=== PATIENT | male | born 1945 | race Caucasian/White ===

== ENCOUNTER 2017-07-24 14:01 | Inpatient (IN) | payer OTHER ==
[~2017-07-24] VITALS: Ht 175.3 cm; Wt 109.3 kg
[2017-07-24 14:05] VITALS: BP 116/69
--- NOTE | 2017-07-24 14:05 | NUR ---
PATIENT AA&O UPON ARRIVAL TO ER. SPEECH CLEAR,NO FACIAL DROOP,ALL EXTREMITIES NO WEAKNESS. HANDS STRONG FLOORING SALES MANAGER. CONVERSING. PER PATIENT,THIS SYMPTOMS HAPPENED MULTIPLE TIMES
--- NOTE | 2017-07-24 14:30 | NUR ---
PATIENT TAKEN TO CT.SCAN
--- NOTE | 2017-07-24 14:46 | NUR ---
PATIENT REFUSED CTSCAN HEAD. ERMD MADE AWARE
[2017-07-24 14:52] LABS: BASOPHILS # (AUTO) 0.2 K/uL (0.00-0.22); BASOPHILS % (AUTO) 2.3 % (0.0-2.0); EOSINOPHILS # (AUTO) 0.4 K/uL (0-0.4); EOSINOPHILS % (AUTO) 5.1 % (0.0-4.0); HEMOGLOBIN 10.6 g/dL (12.0-18.0); LYMPHOCYTES # (AUTO) 1.4 K/uL (2.0-11.5); LYMPHOCYTES % (AUTO) 16.4 % (20.5-51.1); MEAN CORPUSCULAR HEMOGLOBIN 29 pg (27-31); MEAN CORPUSCULAR HGB CONC 33 g/dL (33-37); MEAN CORPUSCULAR VOLUME 89 fL (80-94); MONOCYTES # (AUTO) 0.9 K/uL (0.8-1.0); MONOCYTES % (AUTO) 10.3 % (1.7-9.3); NEUTROPHILS # (AUTO) 5.7 K/uL (1.8-7.7); NEUTROPHILS % (AUTO) 65.9 % (42.2-75.2); PLATELET COUNT (AUTO) 298 K/uL (140-450); RED BLOOD CELL COUNT(AUTO) 3.61 MIL/uL (4.20-6.10); RED CELL DISTRIBUTION WIDTH 13.4 % (11.6-13.7); WHITE BLOOD COUNT (AUTO) 8.6 K/uL (4.8-10.8)
--- NOTE | 2017-07-24 14:55 | NUR ---
PATIENT TO BED #2
[2017-07-24 15:12] LABS: PROTHROMBIN TIME 11.8 secs (10.8-13.4)
[2017-07-24 15:33] LABS: ALBUMIN 2.7 g/dL (3.4-5.0); ANION GAP 12.6 (8-16); CARBON DIOXIDE 26.3 mmol/L (21-32); CREATININE 2.3 mg/dL (0.7-1.3); POTASSIUM 4.9 mmol/L (3.5-5.1); TOTAL BILIRUBIN 0.4 mg/dL (0.0-1.0)
--- NOTE | 2017-07-24 15:34 | NUR ---
71/M BIBA C/O SLURRED SPEECH x TODAY. PER ENTEROSTOMAL THERAPY NURSE /, PATIENT HAD SLURRED SPEECH/RT.SIDED WEAKNESS APPROX AT 1327. SYMPTOMS RESOLVED WHEN ENTEROSTOMAL THERAPY NURSE ARRIVED AT 1335. BS FIELD 247. HX:HTN,CABG,DM,LIVER PROB,KIDNEY DESEASE. DONT REMEMBER MEDS. ERMD ASSESSING PATIENT ON [facility]
--- NOTE | 2017-07-24 16:00 | NUR ---
Patient being evaluated by physician at bedside.
[2017-07-24] MEDS ORDERED: HYDROcodone/APAP 10/325 MG 1 TAB TAB PO ONE (16:25)
--- NOTE | 2017-07-24 16:35 | NUR ---
PT RESTING. VSS; PATIENT POSITIONED FOR COMFORT; HOB ELEVATED; BEDRAILS UP X2; BED DOWN. ER MD MADE AWARE OF PT STATUS.
[2017-07-24 16:40] LABS: APPEARANCE,URINE CLEAR (CLEAR); BILIRUBIN,URINE NEGATIVE (NEGATIVE); BLOOD, URINE NEGATIVE (NEGATIVE); COLOR,URINE YELLOW (YELLOW); LEUKOCYTE ESTERASE ,URINE NEGATIVE (NEGATIVE); NITRITE, URINE NEGATIVE (NEGATIVE); PH,URINE 5.5 (5.0-9.0); UGLUCOSE 2+ (NEGATIVE)
[2017-07-24] MEDS ORDERED: CLOPIDOGREL 75 MG TAB PO ONE (16:50)
[2017-07-24] MEDS ORDERED: INSU100S5 IJ (17:25)
[2017-07-24] MEDS ORDERED: INSU100S10 SC (17:26)
[2017-07-24] MEDS ORDERED: INSU10SU2 SC (17:29)
--- NOTE | 2017-07-24 17:43 | NUR ---
PT RESTING. VSS; PATIENT POSITIONED FOR COMFORT; HOB ELEVATED; BEDRAILS UP X2; BED DOWN. ER MD MADE AWARE OF PT STATUS.
[2017-07-24] MEDS ORDERED: ACETAMINOPHEN 325 MG TAB PO PRN (18:55)
[2017-07-24] MEDS ORDERED: ONDANSETRON 4 MG/2 ML VIAL IVP PRN (18:55)
--- NOTE | 2017-07-24 19:10 | NUR ---
Patient will be admitted to care of DR CEE . Admited to TELE. Will go to room 108A. Belongings list completed. Report to FABBY MIJARES.
--- NOTE | 2017-07-24 19:30 | NUR ---
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
[2017-07-24 19:50] VITALS: BP 173/74
[2017-07-24 19:59] LABS: BARBITURATE, URINE NEG. ng/ml (NEG <=200); BENZODIAZEPINE, URINE NEG. ng/mL (NEG <=200); CANNABINOID, URINE NEG. ng/mL (NEG <=50); COCAINE, URINE NEG. ng/mL (NEG <=300); OPIATE, URINE POS. ng/mL (NEG <=2000); PHENCYCLIDINE SCREEN,URINE NEG. ng/mL (NEG <=25)
[2017-07-24 20:16] LABS: CHOL/HDL RATIO 6.4 (1-4.5); FREE T4 (FREE THYROXINE) 0.85 ng/dL (0.76-1.46); MAGNESIUM 2.3 mg/dL (1.8-2.4); PHOSPHORUS 4.1 mg/dL (2.5-4.9); THYROID STIMULATING HORMONE 1.26 uIU/mL (0.34-3.74)
[2017-07-24] MEDS ORDERED: ALBUTEROL SULFATE/IPRATROPIU 3 ML SOL IH PRN (20:25)
[2017-07-24] MEDS ORDERED: MECLIZINE 25 MG TAB PO PRN (20:25)
[2017-07-24] MEDS ORDERED: NITROGLYCERIN 0.4 MG TAB SL PRN (20:25)
[2017-07-24] MEDS ORDERED: DEXTROSE 50% 50 ML SYR IVP PRN (20:25)
[2017-07-24] MEDS: BLOOD GLUCOSE MONITORING 1 DEV DEV FS SCH (20:49)
[2017-07-24] MEDS: HYDROcodone/APAP 7.5/325 MG 1 TAB PO PRN (20:56)
[2017-07-24] MEDS: METOPROLOL 25 MG TAB PO SCH (20:57)
[2017-07-24] MEDS: guaiFENesin/CODEINE 100/10MG 5 ML UDC PO PRN (20:58)
[2017-07-24] MEDS ORDERED: ATORVASTATIN 20 MG TAB PO SCH (21:00)
[2017-07-24] MEDS: DOCUSATE SODIUM 100 MG GELCAP PO SCH (21:00)
--- NOTE | 2017-07-24 21:00 | NUR ---
BLOOD SUGAR CHECKED WITH 176 RESULT, COVERAGE GIVEN, TUNA SANDWICH AND DIET COLA PROVIDED, DUE MEDS ADMINISTERED WITH EDUCATION, ALL NEEDS ATTENDED.
[2017-07-24] MEDS: INSULIN LISPRO SLIDING SCALE 100 UNITS/ML VIAL SUBQ PRN (21:05)
[2017-07-24] MEDS: NACL 0.9% 1,000 ML IV SCH (21:06)
[2017-07-25] VITALS: BP_SYST 164; BP_SYST 172; BP_SYST 189; BP_DIAS 76; BP_DIAS 78; BP_DIAS 82
--- NOTE | 2017-07-25 | NUR ---
PT EASILY AROUSABLE, ORTHOSTATIC VITAL SIGNS TAKEN, BP ELEVATED, DENIES CHEST PAIN, NO SOB NOTED, CONTINUE TO MONITOR CLOSELY.
[2017-07-25] MEDS: HYDROcodone/APAP 7.5/325 MG 1 TAB PO PRN ×4 (01:04→20:43)
--- NOTE | 2017-07-25 04:00 | NUR ---
PT WITH BACK PAIN, VITAL SIGNS STABLE, NO SOB NOTED, WILL MEDICATED PRN.
[2017-07-25 04:30] VITALS: BP 125/56
[2017-07-25] MEDS: BLOOD GLUCOSE MONITORING 1 DEV DEV FS SCH ×4 (06:32→20:39)
[2017-07-25] MEDS: INSULIN LISPRO SLIDING SCALE 100 UNITS/ML VIAL SUBQ PRN ×4 (06:32→20:41)
--- NOTE | 2017-07-25 06:35 | NUR ---
BLOOD SUGAR CHECKED WITH 239 RESULT, COVERAGE GIVEN, NO DISTRESS NOTED, MONITORED CLOSELY.
[2017-07-25] MEDS: guaiFENesin/CODEINE 100/10MG 5 ML UDC PO PRN ×2 (06:45→16:12)
[2017-07-25 06:47] LABS: BASOPHILS # (AUTO) 0.1 K/uL (0.00-0.22); BASOPHILS % (AUTO) 1.1 % (0.0-2.0); EOSINOPHILS # (AUTO) 0.5 K/uL (0-0.4); EOSINOPHILS % (AUTO) 5.8 % (0.0-4.0); HEMATOCRIT 32.1 % (36-52); HEMOGLOBIN 10.6 g/dL (12.0-18.0); LYMPHOCYTES % (AUTO) 21.6 % (20.5-51.1); MEAN CORPUSCULAR HEMOGLOBIN 29 pg (27-31); MEAN CORPUSCULAR HGB CONC 33 g/dL (33-37); MEAN CORPUSCULAR VOLUME 89 fL (80-94); MONOCYTES # (AUTO) 1.1 K/uL (0.8-1.0); NEUTROPHILS # (AUTO) 5.6 K/uL (1.8-7.7); NEUTROPHILS % (AUTO) 59.5 % (42.2-75.2); PLATELET COUNT (AUTO) 284 K/uL (140-450); RED BLOOD CELL COUNT(AUTO) 3.62 MIL/uL (4.20-6.10); RED CELL DISTRIBUTION WIDTH 13.5 % (11.6-13.7); WHITE BLOOD COUNT (AUTO) 9.3 K/uL (4.8-10.8)
--- NOTE | 2017-07-25 07:14 | NUR ---
RECEIVED PATIENT REPORT AT BEDSIDE FROM NIGHTSHIFT NURSE. PATIENT IS AWAKE AT THIS TIME. PATIENT A&OX3. PATIENT SHOWS NO SIGNS OF FACIAL DROOP. UPDATED BOARDS IN PATIENTS ROOM. CONTACT ISOLATION IN PLACE ALONG WITH FALL RISK. PATIENT DENIED FALL RISK SOCKS. CALL LIGHT WITHIN REACH. WILL CONTINUE TO MONITOR PATIENT.
--- NOTE | 2017-07-25 07:22 | NUR ---
PT AWAKE, NO SIGNS OF DISTRESS, REPORT GIVEN TO FABBY OSPINA FOR CONTINUITY OF CARE.
[2017-07-25 08:00] VITALS: BP 171/78
--- NOTE | 2017-07-25 08:36 | NUR ---
PATIENT HAS BEEN SCREENED AND CATEGORIZED MODERATE RISK. PATIENT WILL BE SEEN WITHIN 3-5 DAYS OF ADMISSION. 07/27/17 TO 07/29/[address]
[2017-07-25] MEDS: ASPIRIN 81 MG TAB.CHEW PO SCH (09:00)
[2017-07-25] MEDS: DOCUSATE SODIUM 100 MG GELCAP PO SCH ×2 (09:00→20:45)
[2017-07-25] MEDS: METOPROLOL 25 MG TAB PO SCH (09:06)
[2017-07-25] MEDS: LISINOPRIL 5 MG TAB PO SCH (09:06)
--- NOTE | 2017-07-25 11:15 | NUR ---
PATIENT DENIED CT OF HEAD PER DR. VELA'S REPORT.
[2017-07-25 12:00] VITALS: BP 153/82
--- NOTE | 2017-07-25 13:22 | NUR ---
PATIENT BLOOD PRESSURE IS 185/82, 71. PATIENT TOOK BLOOD PRESSURE MEDICATIONS THIS MORNING. NOTIFIED DR OF FINDINGS. WILL CONTINUE TO MONITOR PATIENT.
[2017-07-25] MEDS ORDERED: ISOSORBIDE MONONITRATE 30 MG TABER PO SCH (14:32)
[2017-07-25] MEDS ORDERED: FUROSEMIDE 40 MG TAB PO SCH (14:33)
[2017-07-25] MEDS: NACL 0.9% 1,000 ML IV SCH (14:54)
[2017-07-25 16:00] VITALS: BP 145/75
--- NOTE | 2017-07-25 16:12 | NUR ---
PATIENT HAS A COUGH WITH MINIMAL PRODUCTION. PATIENT COUGH IS BOTHERING PATIENT FROM RESTING. ADMINISTERED PRN COUGH MEDICATION.
[2017-07-25 16:32] LABS: ANION GAP 15.6 (8-16); CARBON DIOXIDE 24.1 mmol/L (21-32); CREATININE 2.2 mg/dL (0.7-1.3); POTASSIUM 4.7 mmol/L (3.5-5.1)
[2017-07-25 16:36] LABS: MAGNESIUM 2.3 mg/dL (1.8-2.4); PHOSPHORUS 4.1 mg/dL (2.5-4.9)
--- NOTE | 2017-07-25 19:14 | NUR ---
REPORT GIVEN TO NIGHTSHIFT NURSE AT BEDSIDE. PATIENT IS IN STABLE CONDITION.
--- NOTE | 2017-07-25 19:20 | NUR ---
RECEIVED REPORT FROM AM NURSE. PT RESTING IN BED, AOX4, GENERALIZED WEAKNESS, BEDREST AT THIS TIME, ABLE TO VERBALIZE NEEDS. MANAGER SEARCH ENGINE IN PLACE, PT DENIES CHEST PAIN, SOB. PT C/O PAIN "ALL OVER," WILL MEDICATE ORDERED. PT HAS R HEEL WOUND, RETAIL OFFICE ASSOCIATE. DISCUSSED PLAN OF CARE WITH PT, PT STATED OK. DISCUSSED PT NEED FOR CT HEAD, PT REFUSED. IV ACCESS ASYMPTOMATIC, PATENT AND INTACT, IVF INFUSING WELL. ALL NEEDS MET. SAFETY MEASURES ENSURED. CALL LIGHT WITHIN REACH.
[2017-07-25 20:00] VITALS: BP 171/73
[2017-07-25] MEDS: APIXABAN 2.5 MG TAB PO SCH (20:44)
[2017-07-25] MEDS: ATORVASTATIN 20 MG TAB PO SCH (20:45)
[2017-07-25] MEDS: CARVEDILOL 12.5 MG TAB PO SCH (20:46)
--- NOTE | 2017-07-25 20:46 | NUR ---
BLOOD GLUCOSE 330, INSULIN COVERAGE ADMINISTERED WITH EVENING SNACK AND EDUCATION. PT C/O 03/31 GENERALIZED CHRONIC PAIN "ALL OVER," ADMINISTERED NORCO PO PRN FOR SEVERE PAIN. ADMINISTERED REMAINING DUE MEDS WITH EDUCATION, PT STATED OK, TOLERATED MEDS WELL. ALL NEEDS MET. IVF INFUSING WELL. SAFETY MEASURES ENSURED. CALL LIGHT WITHIN REACH.
[2017-07-25] MEDS ORDERED: ATORVASTATIN 20 MG TAB PO SCH (21:00)
[2017-07-26] VITALS (7 sets, daily range): BP systolic 125–173; BP diastolic 66–87
[2017-07-26] MEDS: CARISOPRODOL 350 MG TAB PO PRN (00:05)
--- NOTE | 2017-07-26 00:10 | NUR ---
PT C/O MUSCLE SPASMS, REQUESTING FOR SOMA PO. ADMINISTERED SOMA PO PRN ORDERED WITH EDUCATION. PT VERBALIZED UNDERSTANDING. ALL NEEDS MET. IVF INFUSING WELL. SAFETY MEASURES ENSURED. CALL LIGHT WITHIN REACH.
[2017-07-26] MEDS: HYDROcodone/APAP 7.5/325 MG 1 TAB PO PRN ×3 (04:33→20:25)
--- NOTE | 2017-07-26 04:37 | NUR ---
PT C/O GENERALIZED PAIN AND BACK PAIN, ADMINISTERED NORCO 10/325 PO PRN ORDERED WITH EDUCATION, PT STATED OK, TOLERATED MED WELL. ALL NEEDS MET. IVF INFUSING WELL. SAFETY MEASURES ENSURED. CALL LIGHT WITHIN REACH.
[2017-07-26] MEDS: BLOOD GLUCOSE MONITORING 1 DEV DEV FS SCH ×4 (06:28→21:01)
[2017-07-26] MEDS: INSULIN LISPRO SLIDING SCALE 100 UNITS/ML VIAL SUBQ PRN ×4 (06:28→21:00)
[2017-07-26] MEDS: guaiFENesin/CODEINE 100/10MG 5 ML UDC PO PRN ×2 (06:33→15:11)
[2017-07-26 06:36] LABS: BASOPHILS # (AUTO) 0.1 K/uL (0.00-0.22); BASOPHILS % (AUTO) 1.8 % (0.0-2.0); EOSINOPHILS # (AUTO) 0.5 K/uL (0-0.4); EOSINOPHILS % (AUTO) 6.7 % (0.0-4.0); HEMATOCRIT 30.1 % (36-52); HEMOGLOBIN 9.8 g/dL (12.0-18.0); LYMPHOCYTES # (AUTO) 1.8 K/uL (2.0-11.5); LYMPHOCYTES % (AUTO) 22.4 % (20.5-51.1); MEAN CORPUSCULAR HEMOGLOBIN 29 pg (27-31); MEAN CORPUSCULAR HGB CONC 33 g/dL (33-37); MEAN CORPUSCULAR VOLUME 89 fL (80-94); MONOCYTES # (AUTO) 0.9 K/uL (0.8-1.0); MONOCYTES % (AUTO) 11.2 % (1.7-9.3); NEUTROPHILS # (AUTO) 4.8 K/uL (1.8-7.7); NEUTROPHILS % (AUTO) 57.9 % (42.2-75.2); PLATELET COUNT (AUTO) 288 K/uL (140-450); RED CELL DISTRIBUTION WIDTH 13.2 % (11.6-13.7); WHITE BLOOD COUNT (AUTO) 8.1 K/uL (4.8-10.8)
--- NOTE | 2017-07-26 06:36 | NUR ---
BLOOD GLUCOSE 295, INSULIN COVERAGE ADMINISTERED WITH EDUCATION. PT C/O COUGH, ADMINISTERED ROBITUSSIN WITH CODEINE PRN WITH EDUCATION. PT VERBALIZED UNDERSTANDING, TOLERATED MEDS WELL. ALL NEEDS MET. IVF INFUSING WELL. SAFETY MEASURES ENSURED.
[2017-07-26 07:05] LABS: ANION GAP 12.8 (8-16); CARBON DIOXIDE 24.7 mmol/L (21-32); POTASSIUM 4.5 mmol/L (3.5-5.1)
[2017-07-26 07:08] LABS: MAGNESIUM 2.2 mg/dL (1.8-2.4); PHOSPHORUS 3.7 mg/dL (2.5-4.9)
[2017-07-26] MEDS ORDERED: ALBUTEROL SULFATE/IPRATROPIU 3 ML SOL IH PRN (07:10)
--- NOTE | 2017-07-26 07:15 | NUR ---
ENDORSED PLAN OF CARE TO AM NURSE. CONDITION STABLE
--- NOTE | 2017-07-26 07:30 | NUR ---
RECEIVED REPORT FROM FIELD TRAFFIC INVESTIGATOR NURSE. PT RESTING IN BED, AOX4, GENERALIZED WEAKNESS. TELE MONITOR IN PLACE, PT DENIES CHEST PAIN, SOB. PT HAS R HEEL WOUND, ERICK. DISCUSSED PLAN OF CARE WITH PT, PT VERBALIZED UNDERSTANDING. IV ACCESS ASYMPTOMATIC, PATENT AND INTACT, IVF INFUSING WELL. ALL NEEDS MET. SAFETY MEASURES ENSURED. CALL LIGHT WITHIN REACH.
--- NOTE | 2017-07-26 07:45 | NUR ---
PT'S AMPUTATION ON THE RIGHT 2ND TOE. WOUND TO THE RIGHT HEEL NOTED. NO DRAINAGE, REAL ESTATE CLERK. HELPED PT TO SIT ON THE CHAIR. CHANGED PT'S LINENS.
--- NOTE | 2017-07-26 07:45 | NUR ---
PT ACCIDENTALLY PULLED OUT HIS IV CATH. IV CATH REMOVED, TIP INTACT, PRESSURE APPLIED. WILL INSERT NEW IV LATER. PT REQUEST IV CATH TO BE PUT IN AFTER BREAKFAST.
--- NOTE | 2017-07-26 08:15 | NUR ---
INSERTED NEW IV ON THE RIGHT HAND, 22G, 1 ATTEMPT, PT TOLERATED WELL.
[2017-07-26] MEDS: amLODIPine 5 MG TAB PO SCH (08:35)
[2017-07-26] MEDS: CARVEDILOL 12.5 MG TAB PO SCH ×2 (08:36→20:26)
[2017-07-26] MEDS: ISOSORBIDE MONONITRATE 30 MG TABER PO SCH (08:36)
[2017-07-26] MEDS: LISINOPRIL 5 MG TAB PO SCH (08:37)
[2017-07-26] MEDS: TAMSULOSIN 0.4 MG CAP PO SCH (08:37)
[2017-07-26] MEDS: ASPIRIN 81 MG TAB.CHEW PO SCH (08:37)
[2017-07-26] MEDS: FUROSEMIDE 40 MG TAB PO SCH (08:37)
[2017-07-26] MEDS: DOCUSATE SODIUM 100 MG GELCAP PO SCH ×2 (08:38→21:00)
--- NOTE | 2017-07-26 09:50 | NUR ---
DR VELAZQUEZ HAS SEEN THE PT.
--- NOTE | 2017-07-26 10:05 | NUR ---
PT'S DAUGHTER HAS CALLED AND CONVINCED PT TO DO THE CT HEAD SCAN. WILL ASK DR TO PUT IN ORDERS.
[2017-07-26] MEDS: APIXABAN 2.5 MG TAB PO SCH ×2 (10:07→20:59)
--- NOTE | 2017-07-26 10:25 | NUR ---
SPOKE WITH DR AKBAR FOR NEW ORDER OF CT HEAD W/O CONTRAST.
--- NOTE | 2017-07-26 10:32 | NUR ---
PT WENT FOR CT HEAD, TICKET TO RIDE PROVIDED. PT WAS TRANSPORT BY BED. NO S/S OF ACUTE DISTRESS NOTED.
--- NOTE | 2017-07-26 12:00 | NUR ---
BLOOD GLUCOSE CHECKED. PT HAS NO C/O PAIN AT THIS TIME. NO S/S OF ACUTE DISTRESS NOTED.
[2017-07-26] MEDS: NACL 0.9% 1,000 ML IV SCH (15:00)
--- NOTE | 2017-07-26 19:30 | NUR ---
ENDORSED PLAN OF CARE TO ACTUARY NURSE. CONDITION STABLE
--- NOTE | 2017-07-26 19:31 | NUR ---
RECEIVED BEDSIDE REPORT FROM DAY SHIFT NURSE CARLOS RN, PT STABLE, NO DISTRESS NOTED, IV TO R HAND 22G RUNNING NS @ 50ML/ HR, INFUSING WELL, PT ON 2LPM O2 VIA NC, NO SOB, INITIAL ASSESSMENT DONE, ALL SAFETY PRECAUTION MET, CALL LIGHT WITHIN REACH, WILL CONTINUE TO MONITOR.
[2017-07-26] MEDS: ATORVASTATIN 20 MG TAB PO SCH (20:26)
--- NOTE | 2017-07-26 20:26 | NUR ---
DUE MEDICATION GIVEN, PT C/O OF PAIN 01/29, PAIN MEDICATION ORDERED GIVEN, PT TOLERATED WELL, NO DISTRESS NOTED, CALL LIGHT WITHIN REACH, WILL CONTINUE TO MONITOR.
--- NOTE | 2017-07-26 21:00 | NUR ---
CHECKED PT BLOOD SUGAR, 324, INSULIN ORDERED GIVEN, PT STATED THAT HE WANTS TO ADMINISTER IT HIMSELF, AND WOULD NOT ALLOW NURSE TO ADMINISTER INSULIN. PT ADMINISTER INSULIN HIMSELF, TOLERATED WELL, NO DISTRESS NOTED, CALL LIGHT WITHIN REACH, WILL CONTINUE TO MONITOR.
--- NOTE | 2017-07-26 22:05 | NUR ---
CHECKED ON PT, PT SLEEPING, NO DISTRESS NOTED, CALL LIGHT WITHIN REACH, WILL CONTINUE TO MONITOR.
[2017-07-27] VITALS: BP 159/81
[2017-07-27] MEDS: guaiFENesin/CODEINE 100/10MG 5 ML UDC PO PRN ×2 (00:07→08:57)
[2017-07-27] MEDS: CARISOPRODOL 350 MG TAB PO PRN (00:08)
--- NOTE | 2017-07-27 00:08 | NUR ---
PT C/O COUGHING, REQUESTED COUGH SYRUP AND PAIN ON THE BACK 11/29, MEDICATION GIVEN,PT TOLERATED WELL, NO DISTRESS NOTED, CALL LIGHT WITHIN REACH.WILL CONTINUE TO MONITOR.
--- NOTE | 2017-07-27 01:20 | NUR ---
CHECKED ON PT, PT SLEEPING, NO DISTRESS NOTED, STABLE, CALL LIGHT WITHIN REACH, WILL CONTINUE TO MONITOR.
--- NOTE | 2017-07-27 03:10 | NUR ---
CHECKED ON PT PT SLEEPING NO DISTRESS NOTED, CALL LIGHT WITHIN REACH, WILL CONTINUE TO MONITOR.
[2017-07-27 04:00] VITALS: BP 158/69
[2017-07-27] MEDS: HYDROcodone/APAP 7.5/325 MG 1 TAB PO PRN (06:10)
--- NOTE | 2017-07-27 06:10 | NUR ---
PT C/O PAIN 10/10 ON THE BACK, DUE PAIN MEDICATION GIVEN, PT TOLERATED WELL, WILL CONTINUE TO MONITOR.
[2017-07-27] MEDS: INSULIN LISPRO SLIDING SCALE 100 UNITS/ML VIAL SUBQ PRN ×2 (06:14→12:02)
[2017-07-27 06:38] LABS: BASOPHILS # (AUTO) 0.1 K/uL (0.00-0.22); BASOPHILS % (AUTO) 1.4 % (0.0-2.0); EOSINOPHILS # (AUTO) 0.7 K/uL (0-0.4); EOSINOPHILS % (AUTO) 7.3 % (0.0-4.0); HEMATOCRIT 30.9 % (36-52); HEMOGLOBIN 10.2 g/dL (12.0-18.0); LYMPHOCYTES # (AUTO) 2.2 K/uL (2.0-11.5); LYMPHOCYTES % (AUTO) 24.4 % (20.5-51.1); MEAN CORPUSCULAR HEMOGLOBIN 30 pg (27-31); MEAN CORPUSCULAR HGB CONC 33 g/dL (33-37); MEAN CORPUSCULAR VOLUME 90 fL (80-94); MONOCYTES # (AUTO) 1.1 K/uL (0.8-1.0); MONOCYTES % (AUTO) 11.8 % (1.7-9.3); NEUTROPHILS # (AUTO) 4.9 K/uL (1.8-7.7); NEUTROPHILS % (AUTO) 55.1 % (42.2-75.2); PLATELET COUNT (AUTO) 286 K/uL (140-450); RED BLOOD CELL COUNT(AUTO) 3.44 MIL/uL (4.20-6.10); RED CELL DISTRIBUTION WIDTH 13.6 % (11.6-13.7)
[2017-07-27] MEDS: NACL 0.9% 1,000 ML IV SCH (06:54)
[2017-07-27] MEDS: BLOOD GLUCOSE MONITORING 1 DEV DEV FS SCH ×2 (06:56→11:55)
--- NOTE | 2017-07-27 07:23 | NUR ---
ENDORSED PLAN OF CARE TO DAY SHIFT NURSE XAVIER SEQUEIRA, PT STABLE, NO DISTRESS NOTED, CALL LIGHT WITHIN REACH.
--- NOTE | 2017-07-27 07:24 | NUR ---
RECEIVED REPORT FROM HARDNESS TESTER NURSE LEVY AT BEDSIDE FOR CONTINUITY OF CARE. PT IS AWAKE AND ORIENTED X4. INTRODUCED SELF AND UPDATED BOARD. DIMINISHED LUNG SOUNDS. NO COUGH. O2 SAT 97% ON RA. SKIN WARM AND DRY. IV TO R HAND 22G INFUSING WITH NS AT 50ML/HR. SITE INTACT. DENIES PAIN. NO SIGNS OF DISTRESS. SITTING AT EDGE OF BED EATING BREAKFAST. BED IN LOW POSITION, WHEELS LOCKED, CALL LIGHT WITHIN REACH. WILL CONTINUE TO MONITOR.
[2017-07-27 07:42] LABS: ANION GAP 12.8 (8-16); POTASSIUM 4.8 mmol/L (3.5-5.1)
[2017-07-27 07:44] LABS: MAGNESIUM 2.3 mg/dL (1.8-2.4)
[2017-07-27 08:00] VITALS: BP 163/73
[2017-07-27] MEDS: TAMSULOSIN 0.4 MG CAP PO SCH (08:40)
[2017-07-27] MEDS: ASPIRIN 81 MG TAB.CHEW PO SCH (08:40)
[2017-07-27] MEDS: DOCUSATE SODIUM 100 MG GELCAP PO SCH (08:41)
[2017-07-27] MEDS: amLODIPine 5 MG TAB PO SCH (08:41)
[2017-07-27] MEDS: LISINOPRIL 5 MG TAB PO SCH (08:41)
--- NOTE | 2017-07-27 08:41 | NUR ---
ADMINISTERED SCHEDULED MEDS. PT TOLERATED WELL. NO SIGNS OF DISTRESS. PT REFUSED TO HAVE P/T. STATED HE WILL DO EXERCISES WHEN HE GETS HOME. P/T AWARE. CALL LIGHT WITHIN REACH. WILL CONTINUE TO MONITOR.
[2017-07-27] MEDS: CARVEDILOL 12.5 MG TAB PO SCH (08:42)
[2017-07-27] MEDS: FUROSEMIDE 40 MG TAB PO SCH (08:42)
[2017-07-27] MEDS: ISOSORBIDE MONONITRATE 30 MG TABER PO SCH (08:42)
[2017-07-27] MEDS: APIXABAN 2.5 MG TAB PO SCH (08:52)
[2017-07-27] MEDS ORDERED: INSULIN LANTUS 100 UNITS/ML 10 ML VIAL SUBQ SCH (09:00)
--- NOTE | 2017-07-27 09:39 | NUR ---
PT NOTE 5531 CHART REVIEWED AND CLEARED FOR PT PER RN; Pt REFUSED TO PARTICIPATE WITH PT, SAYING THAT HE WILL BE GOING HOME TODAY. EDUCATED Pt ON BENEFIT OF STAIR AND GAIT TRAINING TO ENSURE SAFE MOBILITY WITHIN HOME; BUT Pt STILL REFUSED AND SAID THAT HE WOULD BE FINE ONCE HE GETS HOME; RN AWARE.
--- NOTE | 2017-07-27 09:59 | NUR ---
CM NOTE PER [facility] CM CARLOS Amor PH# [phone], REVIEWS SHOULD ONLY BE SENT TO [facility] AND NOT TO [facility]. INITIAL REVIEW FAXED TO [facility] [phone] CARLOS Amor PH# [phone].
--- NOTE | 2017-07-27 11:00 | NUR ---
Managing Broker Notes: Due to Patient's Request and denial of consent, these marine underwriter will not contact patient's daughter Lorena Sandoval at to discuss patient's status.
[2017-07-27 12:00] VITALS: BP 145/66
[2017-07-27] MEDS ORDERED: CARV12.52 PO (12:55)
[2017-07-27] MEDS ORDERED: ACET-9529 PO (12:55)
[2017-07-27] MEDS ORDERED: APIX2.5 PO (12:55)
[2017-07-27] MEDS ORDERED: ATOR20TA40 PO (12:55)
[2017-07-27] MEDS ORDERED: TAMS0.4C96 PO (12:55)
[2017-07-27] MEDS ORDERED: LISI-424 PO (12:55)
[2017-07-27] MEDS ORDERED: AMLO5TAB4 PO (12:55)
[2017-07-27] MEDS ORDERED: ASPI81CT95 PO (12:55)
--- NOTE | 2017-07-27 15:00 | NUR ---
PT D/C TO GO HOME. GAVE D/C INSTRUCTIONS, FORMS, RX, LABS, AND FOLLOW UP APPOINTMENT. PT VERBALIZED UNDERSTANDING AND SIGNED FORMS. REMOVED IV FROM R HAND 22G. IV CATHETER TIP INTACT. APPLIED DRESSING AND PRESSURE TO SITE. NO BLEEDING NOTED. REMOVED ID BAND AND TELE MONITOR. PT CHANGED IN OWN CLOTHES AND LEFT WITH ALL PERSONAL BELONGINGS. LEFT WITH HOME MEDS FROM PHARMACY. DAUGHTER PICKED UP PT. PT LEFT UNIT VIA WHEELCHAIR ACCOMPANIED BY TUMBLER PLATER. PT LEFT IN STABLE CONDITION.
[2017-07-28] MEDS ORDERED: INSULIN LANTUS 100 UNITS/ML 10 ML VIAL SUBQ SCH (09:00)
== END 2017-07-27 15:00 | disposition home or self-care (01) | DRG 64 ==
LOC: MED 14:01 → MTU 18:58
PROVIDERS: ADMIT Family Medicine Sports Medicine; ATTEND Family Medicine Sports Medicine
DX: I63.9 Cerebral infarction, unspecified (principal); N17.0 Acute kidney failure with tubular necrosis; E43 Unspecified severe protein-calorie malnutrition; D68.59 Other primary thrombophilia; E11.22 Type 2 diabetes mellitus with diabetic chronic kidney disease; E11.51 Type 2 diabetes mellitus with diabetic peripheral angiopathy without gangrene; E11.65 Type 2 diabetes mellitus with hyperglycemia; N18.4 Chronic kidney disease, stage 4 (severe); Z66 Do not resuscitate; E83.51 Hypocalcemia; E87.8 Other disorders of electrolyte and fluid balance, not elsewhere classified; E66.9 Obesity, unspecified; I25.10 Atherosclerotic heart disease of native coronary artery without angina pectoris; J45.909 Unspecified asthma, uncomplicated; N40.0 Benign prostatic hyperplasia without lower urinary tract symptoms; I12.9 Hypertensive chronic kidney disease with stage 1 through stage 4 chronic kidney disease, or unspecified chronic kidney disease; J32.0 Chronic maxillary sinusitis; E78.2 Mixed hyperlipidemia; M54.9 Dorsalgia, unspecified; G89.29 Other chronic pain; R80.9 Proteinuria, unspecified; D63.1 Anemia in chronic kidney disease; Z68.35 Body mass index [BMI] 35.0-35.9, adult; Z86.73 Personal history of transient ischemic attack (TIA), and cerebral infarction without residual deficits; Z95.1 Presence of aortocoronary bypass graft; Z87.891 Personal history of nicotine dependence; Z91.19 Patient's noncompliance with other medical treatment and regimen
CPT/HCPCS: 36415; 70450; 71045; 80048; 80053; 80305; 81003; 82140; 82150; 82948; 83036; 83605; 83690; 83735; 83880; 84100; 84439; 84443; 84484; 85025; 85610; 85730; 87081; 87086; 93005; 93880; 93925; 93970; 94640; 97530; 99285; J1815; J7030; J7620; Q0092